=== PATIENT | female | born 1955 | race Caucasian/White ===

== ENCOUNTER → 2017-04-03 | Outpatient (CLI) | payer OTHER ==
--- NOTE | 2017-04-07 09:51 | MM ---
Reason for exam: additional evaluation requested from prior study. Last mammogram was performed 1 year and 1 month ago. History: Patient is postmenopausal and has history of breast cancer at age 49. Family history of breast cancer in maternal aunt. Saline implants in both breasts, March 2006. Mastectomy of the right breast, June 13, 2005. Benign right US cyst aspiration of the right breast, May 24, 2005. Malignant US right core biopsy of the right breast, May 24, 2005. Chemotherapy, 2004. Benign excisional biopsy of the right breast, May 12, 2000. Cyst aspiration of the left breast. Excisional biopsy of the right breast. Took hormonal contraceptives for 15 years beginning at age 19. Took tamoxifen for 4 years 6 months beginning at age 50. Physical Findings: Nurse did not find any significant physical abnormalities on exam. MG 3D Diag Mammo Imp W/Cad LT CC, MLO, and ID view(s) were taken of the left breast. Prior study comparison: March 07, 2016, left breast MG 3d diag mammo imp w/cad LT. February 27, 2015, left breast MG diagnostic mammo LT w CAD. The breast tissue is heterogeneously dense. This may lower the sensitivity of mammography. There is no discrete abnormality. These results were verbally communicated with the patient and result sheet given to the patient on 04/03/17. ASSESSMENT: Negative, BI-RAD 1 RECOMMENDATION: Routine screening mammogram of the left breast in 1 year.
== END | disposition home or self-care (01) ==
LOC: RADMAMWWP 14:10
PROVIDERS: ATTEND Obstetrics & Gynecology
DX: Z08 Encounter for follow-up examination after completed treatment for malignant neoplasm (principal); Z85.3 Personal history of malignant neoplasm of breast
CPT/HCPCS: G0206; G0279

== ENCOUNTER → 2018-04-15 | Outpatient (CLI) | payer BC ==
--- NOTE | 2018-04-16 08:22 | MM ---
Reason for exam: additional evaluation requested from prior study. Last mammogram was performed 1 year ago. History: Patient is postmenopausal and has history of breast cancer at age 49. Family history of breast cancer in maternal aunt. Saline implants in both breasts, March 2006. Mastectomy of the right breast, June 13, 2005. Benign right US cyst aspiration of the right breast, May 24, 2005. Malignant US right core biopsy of the right breast, May 24, 2005. Chemotherapy, 2004. Benign excisional biopsy of the right breast, May 12, 2000. Cyst aspiration of the left breast. Excisional biopsy of the right breast. Took hormonal contraceptives for 15 years beginning at age 19. Took tamoxifen for 4 years 6 months beginning at age 50. Physical Findings: Nurse did not find any significant physical abnormalities on exam. MG 3D Diag Mammo Imp W/Cad LT CC and MLO view(s) were taken of the left breast. Prior study comparison: April 03, 2017, left breast MG 3d diag mammo imp w/cad LT. March 07, 2016, left breast MG 3d diag mammo imp w/cad LT. February 27, 2015, left breast MG diagnostic mammo LT w CAD. The breast tissue is heterogeneously dense. This may lower the sensitivity of mammography. No discrete abnormality. Left subpectoral implant redemitrated. These results were verbally communicated with the patient and result sheet given to the patient on 04/15/18. ASSESSMENT: Benign, BI-RAD 2 RECOMMENDATION: Follow-up diagnostic mammogram of the left breast in 1 year.
== END | disposition home or self-care (01) ==
LOC: RADMAMWWP 13:20
PROVIDERS: ATTEND Internal Medicine Hematology & Oncology
DX: Z08 Encounter for follow-up examination after completed treatment for malignant neoplasm (principal); Z85.3 Personal history of malignant neoplasm of breast
CPT/HCPCS: 77061; 77065

== ENCOUNTER → 2018-12-01 | Outpatient (CLI) | payer BC ==
--- NOTE | 2018-12-01 10:08 | MM ---
Reason for exam: clinical finding. Last mammogram was performed 8 months ago. History: Patient is postmenopausal and has history of breast cancer at age 49. Family history of breast cancer in maternal aunt. Saline implants in both breasts, March 2006. Mastectomy of the right breast, June 13, 2005. Benign right US cyst aspiration of the right breast, May 24, 2005. Malignant US right core biopsy of the right breast, May 24, 2005. Chemotherapy, 2004. Benign excisional biopsy of the right breast, May 12, 2000. Cyst aspiration of the left breast. Excisional biopsy of the right breast. Took hormonal contraceptives for 15 years beginning at age 19. Took tamoxifen for 4 years 6 months beginning at age 50. Indicated problem(s): pain in the left breast. Physical Findings: Nurse did not find any significant physical abnormalities on exam. MG 3D Diag Mammo Imp W/Cad LT CC, MLO, CCRL, ID, and spot compression LM view(s) were taken of the left breast. Prior study comparison: April 15, 2018, left breast MG 3d diag mammo imp w/cad LT. April 03, 2017, left breast MG 3d diag mammo imp w/cad LT. The breast tissue is heterogeneously dense. This may lower the sensitivity of mammography. No significant new findings when compared with previous films. These results were verbally communicated with the patient and result sheet given to the patient on 12/01/18. ASSESSMENT: Benign, BI-RAD 2 RECOMMENDATION: Ultrasound of the left breast in 6 months.
--- NOTE | 2018-12-01 10:09 | USB ---
Reason for exam: clinical finding. History: Patient is postmenopausal and has history of breast cancer at age 49. Family history of breast cancer in maternal aunt. Saline implants in both breasts, March 2006. Mastectomy of the right breast, June 13, 2005. Benign right US cyst aspiration of the right breast, May 24, 2005. Malignant US right core biopsy of the right breast, May 24, 2005. Chemotherapy, 2004. Benign excisional biopsy of the right breast, May 12, 2000. Cyst aspiration of the left breast. Excisional biopsy of the right breast. Took hormonal contraceptives for 15 years beginning at age 19. Took tamoxifen for 4 years 6 months beginning at age 50. US Breast LT Left complete breast ultrasound includes all four quadrants, the retroareolar region and axilla. Finding demonstrates a 0.6 x 0.2 x 0.6cm cystic lesion at 5 o'clock. These results were verbally communicated with the patient and result sheet given to the patient on 12/01/18. ASSESSMENT: Probably benign, BI-RAD 3 RECOMMENDATION: Ultrasound of the left breast in 6 months.
== END | disposition home or self-care (01) ==
LOC: RADMAMWWP 08:20
PROVIDERS: ATTEND Obstetrics & Gynecology
DX: N64.52 Nipple discharge (principal); Z85.3 Personal history of malignant neoplasm of breast; Z98.82 Breast implant status
CPT/HCPCS: 77061; 77065

== ENCOUNTER → 2020-02-14 | Outpatient (CLI) | payer OTHER ==
--- NOTE | 2020-02-15 10:22 | MM ---
Reason for exam: screening (asymptomatic). Last mammogram was performed 1 year and 2 months ago. History: Patient is postmenopausal and has history of breast cancer at age 49. Family history of breast cancer in maternal aunt. Saline implants in both breasts, March 2006. Mastectomy of the right breast, June 13, 2005. Benign right US cyst aspiration of the right breast, May 24, 2005. Malignant US right core biopsy of the right breast, May 24, 2005. Chemotherapy, 2004. Benign excisional biopsy of the right breast, May 12, 2000. Cyst aspiration of the left breast. Excisional biopsy of the right breast. Took hormonal contraceptives for 15 years beginning at age 19. Took tamoxifen for 4 years 6 months beginning at age 50. Physical Findings: A clinical breast exam by your physician is recommended on an annual basis and results should be correlated with mammographic findings. MG 3D Diag Mammo Imp W/Cad LT CC, MLO, and ID view(s) were taken of the left breast. Prior study comparison: December 01, 2018, left breast MG 3d diag mammo imp w/cad LT. April 15, 2018, left breast MG 3d diag mammo imp w/cad LT. The breast tissue is heterogeneously dense. This may lower the sensitivity of mammography. Retropectoral saline implant. Benign oil cyst calcification upper outer quadrant. No significant new findings when compared with previous films. These results were verbally communicated with the patient and result sheet given to the patient on 02/14/20. ASSESSMENT: Negative, BI-RAD 1 RECOMMENDATION: Follow-up diagnostic mammogram of the left breast in 1 year.
== END | disposition home or self-care (01) ==
LOC: RADMAMWWP 13:57
PROVIDERS: ATTEND Internal Medicine Hematology & Oncology
DX: Z08 Encounter for follow-up examination after completed treatment for malignant neoplasm (principal); Z85.3 Personal history of malignant neoplasm of breast
CPT/HCPCS: 77061; 77065

== ENCOUNTER → 2021-02-14 | Outpatient (CLI) | payer MEDICARE, OTHER ==
--- NOTE | 2021-02-15 07:32 | BD ---
EXAMINATION TYPE: Axial Bone Density DATE OF EXAM: 02/14/2021 COMPARISON: NONE CLINICAL HISTORY: Postmenopausal female Height: 5 FT 2 IN Weight: 108 FRAX RISK QUESTIONS: Alcohol (3 or more units per day): NO Family History (Parent hip fracture): NO Glucocorticoids (More than 3mos): NO (Ex: prednisone, prednisolone, methylprednisolone, dexamethasone, and hydrocortisone). History of Fracture in Adulthood: YES Secondary Osteoporosis: 1. Type 1 Diabetes: NO 2. Hyperthyroidism: NO 3. Menopause before 45: NO 4. Malnutrition: NO 5. Chronic liver disease: NO Rheumatoid Arthritis: NO Current Tobacco Use: NO RISK FACTORS HISTORY OF: History of Wrist Fracture: LEFT WRIST When: 8 YEARS AGO Surgery to Spine/Hip(right/left)/Wrist (right/left): NO Family History of Osteoporosis: NO Active: YES Diet low in dairy products/other sources of calcium: NO Postmenopausal woman: CHEMO INDUCED AGE 49 Take estrogen and/or progesterone medications: NO Lost more than 2 inches in height since high school: NO MEDICATIONS: Thyroid Medications: YES Which medication: SYNTHROID How Long: APPROX 10 YEARS Additional Medications: SYNTHROID, ESTRACE CREAM, Additional History: BREAST CANCER AGE 49 CHEMO ONLY EXAM MEASUREMENTS: Bone mineral densitometry was performed using the [employer] System. Bone mineral density as measured about the Lumbar spine is: ----- L1-L4(G/cm2): 0.848 T Score Values are as follows: ----- L2: -3.5 ----- L3: -2.7 ----- L4: -1.8 ----- L1-L4: -2.8 PREV DONE AT [facility] Bone mineral density about the R hip (g/cm2): 0.802 Bone mineral density about the L hip (g/cm2): 0.713 T Score values are as follows: -----R Neck: -1.7 -----L Neck: -2.2 -----R Total: -2.2 -----L Total: -2.6 PREV DONE AT [facility] IMPRESSION: Osteoporosis (T Score less than -2.5). There is increased fracture risk and therapy is usually indicated based on age. Re-Screen 1-2 years. NOTE: T-SCORE=SD OF THE YOUNG ADULT MEAN.
--- NOTE | 2021-02-15 14:07 | MM ---
Reason for exam: additional evaluation requested from prior study. Last mammogram was performed 1 year ago. History: Patient is postmenopausal and has history of breast cancer at age 49. Family history of breast cancer in maternal aunt. Saline implants in both breasts, March 2006. Mastectomy of the right breast, June 13, 2005. Benign right US cyst aspiration of the right breast, May 24, 2005. Malignant US right core biopsy of the right breast, May 24, 2005. Chemotherapy, 2004. Benign excisional biopsy of the right breast, May 12, 2000. Cyst aspiration of the left breast. Excisional biopsy of the right breast. Took hormonal contraceptives for 15 years beginning at age 19. Took tamoxifen for 5 years beginning at age 50. Physical Findings: Nurse did not find any significant physical abnormalities on exam. MG 3D Diag Mammo Imp W/Cad LT CC, MLO, and ID view(s) were taken of the left breast. Prior study comparison: February 14, 2020, left breast MG 3d diag mammo imp w/cad LT. December 01, 2018, left breast MG 3d diag mammo imp w/cad LT. The breast tissue is heterogeneously dense. This may lower the sensitivity of mammography. Left retropectoral implant obscures portions of the breast and limits compression. These results were verbally communicated with the patient and result sheet given to the patient on 02/14/21. ASSESSMENT: Benign, BI-RAD 2 RECOMMENDATION: Follow-up diagnostic mammogram of the left breast in 1 year.
== END | disposition home or self-care (01) ==
LOC: RADMAMWWP 13:26
PROVIDERS: ATTEND Internal Medicine Hematology & Oncology
DX: M81.8 Other osteoporosis without current pathological fracture (principal); R92.2 Inconclusive mammogram; Z78.0 Asymptomatic menopausal state; Z85.3 Personal history of malignant neoplasm of breast
CPT/HCPCS: 77080; 77065; G0279; 77061

== ENCOUNTER → 2022-02-18 | Outpatient (CLI) | payer MEDICARE, OTHER ==
--- NOTE | 2022-02-19 09:29 | MM ---
Reason for Exam: Screening (asymptomatic). Last screening mammogram was performed 12 month(s) ago. Patient History: Menarche at age 12. First Full-Term at age 24. Postmenopausal. Breast cancer, right, age 49. Previous chemotherapy at age 49. Hormonal Contraceptives for 15 years from age 19 until age 49. Tamoxifen for 5 years from age 50 until age 55. 06/13/2005, Mastectomy on the Right side. Excisional Biopsy on the Right side. Cyst Aspiration on the Left side. 05/24/2005, Benign Cyst Aspiration on the right side. 05/24/2005, Malignant Core Biopsy on the right side. 05/12/2000, Benign Excisional Biopsy on the right side. 2004, Chemotherapy. 03/2006, Bilateral Implants. Maternal aunt had breast cancer under age 50. Prior Study Comparison: 12/01/2018 Left Diagnostic Mammogram, [facility]. 02/14/2020 Left Diagnostic Mammogram, [facility]. 02/14/2021 Left Diagnostic Mammogram, [facility]. Tissue Density: The breast tissue is heterogeneously dense. This may lower the sensitivity of mammography. Findings: Analyzed By CAD. There is no suspicious group of microcalcifications or new suspicious mass in either breast. Breast implant is noted. Benign calcifications noted. Overall Assessment: Benign, BI-RAD 2 Management: Screening Mammogram of the left breast in 1 year. A clinical breast exam by your physician is recommended on an annual basis and results should be correlated with mammographic findings. Electronically signed and approved by: Williams Kelly M.D. Radiologis
== END | disposition home or self-care (01) ==
LOC: RADMAMWWP 10:10
PROVIDERS: ATTEND Internal Medicine Hematology & Oncology
DX: Z12.31 Encounter for screening mammogram for malignant neoplasm of breast (principal); Z78.0 Asymptomatic menopausal state; Z80.3 Family history of malignant neoplasm of breast
CPT/HCPCS: 77063; 77067

== ENCOUNTER → 2023-02-20 | Outpatient (CLI) | payer MEDICARE, OTHER ==
--- NOTE | 2023-02-21 08:35 | MM ---
Reason for Exam: Screening (asymptomatic). Last screening mammogram was performed 12 month(s) ago. Patient History: Menarche at age 12. First Full-Term at age 24. Postmenopausal. Breast cancer, right, age 49. Previous chemotherapy at age 49. Hormonal Contraceptives for 15 years from age 19 until age 49. Tamoxifen for 5 years from age 50 until age 55. Excisional Biopsy on the Right side. Cyst Aspiration on the Left side. 05/24/2005, Benign Cyst Aspiration on the right side. 05/24/2005, Malignant Core Biopsy on the right side. 05/12/2000, Benign Excisional Biopsy on the right side. 2004, Chemotherapy. 03/2006, Bilateral Implants. Maternal aunt had breast cancer. Prior Study Comparison: 02/14/2020 Left Diagnostic Mammogram, [facility]. 02/14/2021 Left Diagnostic Mammogram, [facility]. 02/18/2022 Bilateral MG 3D screen mammo imp/cad., [facility]. Tissue Density: The breast tissue is heterogeneously dense. This may lower the sensitivity of mammography. Findings: Analyzed By CAD. There is no suspicious group of microcalcifications or new suspicious mass in either breast. Left breast implant is intact. Overall Assessment: Benign, BI-RAD 2 Management: Screening Mammogram of the left breast in 1 year. . Patient should continue monthly self-breast exams. A clinical breast exam by your physician is recommended on an annual basis. This exam should not preclude additional follow-up of suspicious palpable abnormalities. Note on Tammi scores and lifetime risk: 1. A Tammi score greater than 3% is considered moderate risk. If this is the case, consider specialist referral to assess eligibility for a risk reducing agent. 2. If overall lifetime risk for the development of breast cancer is 20% or higher, the patient may qualify for future screening with alternating mammogram and breast MRI. Electronically signed and approved by: Hernandez Carlisle M.D. Radiologis
== END | disposition home or self-care (01) ==
LOC: RADMAMWWP 10:59
PROVIDERS: ATTEND Internal Medicine Hematology & Oncology
DX: Z12.31 Encounter for screening mammogram for malignant neoplasm of breast (principal); Z78.0 Asymptomatic menopausal state; Z80.3 Family history of malignant neoplasm of breast
CPT/HCPCS: 77063; 77067

== ENCOUNTER → 2024-03-30 | Outpatient (CLI) | payer MEDICARE, OTHER ==
--- NOTE | 2024-03-31 13:38 | MM ---
Reason for Exam: Hx of breast cancer, mastectomy. Last mammogram was performed 1 year(s) and 1 month(s) ago. Patient History: Menarche at age 12. First Full-Term at age 24. Postmenopausal. Patient has history of breast feeding. Breast cancer, right, age 49. Previous chemotherapy at age 49. Hormonal Contraceptives for 15 years from age 19 until age 49. Tamoxifen for 5 years from age 50 until age 55. Excisional Biopsy on the Right side. Cyst Aspiration on the Left side. 05/24/2005, Benign Cyst Aspiration on the right side. 05/24/2005, Malignant Core Biopsy on the right side. 05/12/2000, Benign Excisional Biopsy on the right side. 2004, Chemotherapy. 03/2006, Bilateral Implants. Maternal aunt had breast cancer. Prior Study Comparison: 03/07/2016 Left Diagnostic Mammogram, [facility]. 04/03/2017 Left Diagnostic Mammogram, [facility]. 04/15/2018 Left Diagnostic Mammogram, [facility]. 12/01/2018 Left Diagnostic Mammogram, [facility]. 02/14/2020 Left Diagnostic Mammogram, [facility]. 02/14/2021 Left Diagnostic Mammogram, [facility]. 02/18/2022 Bilateral MG 3D screen mammo imp/cad., [facility]. 02/20/2023 Bilateral MG 3D screen mammo imp/cad., [facility]. Tissue Density: Left: The breasts are heterogeneously dense, which may obscure small masses. Findings: Analyzed By CAD. There is no suspicious group of microcalcifications or new suspicious mass in the left breast. Left breast implant intact. Overall Assessment: Benign, BI-RAD 2 Management: Screening Mammogram of both breasts in 1 year. . Patient should continue monthly self-breast exams. A clinical breast exam by your physician is recommended on an annual basis. This exam should not preclude additional follow-up of suspicious palpable abnormalities. Note on Tammi scores and lifetime risk: 1. A Tammi score greater than 3% is considered moderate risk. If this is the case, consider specialist referral to assess eligibility for a risk reducing agent. 2. If overall lifetime risk for the development of breast cancer is 20% or higher, the patient may qualify for future screening with alternating mammogram and breast MRI. Electronically signed and approved by: Hernandez Carlisle M.D. Radiologis
== END | disposition home or self-care (01) ==
LOC: RADMAMWWP 12:36
PROVIDERS: ATTEND Internal Medicine Hematology & Oncology
DX: Z12.31 Encounter for screening mammogram for malignant neoplasm of breast (principal); R92.332 Mammographic heterogeneous density, left breast; Z78.0 Asymptomatic menopausal state; Z80.3 Family history of malignant neoplasm of breast
CPT/HCPCS: 77067